=== PATIENT | male | born 1945 | race American Indian/Alaskan Native ===

== ENCOUNTER 2020-05-15 10:50 | Outpatient (CLI) | payer MEDICARE | END 2020-05-15 10:51 | disposition home or self-care (01) | LOC: WOUND 10:50 | PROVIDERS: ATTEND Surgery | DX: L89.313 Pressure ulcer of right buttock, stage 3 (principal); S06.2X1A Diffuse traumatic brain injury with loss of consciousness of 30 minutes or less, initial encounter; F79 Unspecified intellectual disabilities; F31.9 Bipolar disorder, unspecified; X58.XXXA Exposure to other specified factors, initial encounter; Y93.89 Activity, other specified; Y92.89 Other specified places as the place of occurrence of the external cause; Y99.8 Other external cause status | CPT/HCPCS: 11042; G0463; 99204; 99214 ==

== ENCOUNTER 2020-05-29 10:32 | Outpatient (CLI) | payer MEDICARE ==
[2020-05-29] MEDS ORDERED: LIDOCAINE (4%) 40 MG/ML TOPICAL SOLN 50 ML BOTTLE TP ONE (10:46)
== END 2020-05-29 10:33 | disposition home or self-care (01) ==
LOC: WOUND 10:32
PROVIDERS: ATTEND Surgery
DX: L89.313 Pressure ulcer of right buttock, stage 3 (principal); S06.2X1D Diffuse traumatic brain injury with loss of consciousness of 30 minutes or less, subsequent encounter; F79 Unspecified intellectual disabilities; F31.9 Bipolar disorder, unspecified; X58.XXXD Exposure to other specified factors, subsequent encounter

== ENCOUNTER 2020-06-12 10:22 | Outpatient (CLI) | payer MEDICARE | END 2020-06-12 10:23 | disposition home or self-care (01) | LOC: WOUND 10:22 | PROVIDERS: ATTEND Surgery | DX: L89.313 Pressure ulcer of right buttock, stage 3 (principal); S06.2X1D Diffuse traumatic brain injury with loss of consciousness of 30 minutes or less, subsequent encounter; F31.9 Bipolar disorder, unspecified; X58.XXXD Exposure to other specified factors, subsequent encounter | CPT/HCPCS: 99213; G0463 ==